=== PATIENT | male | born 1995 | race Hispanic/Latino ===

== ENCOUNTER 2023-01-08 23:57 | Emergency (ER) | payer OTHER ==
[2023-01-09] MEDS ORDERED: CEFAZOLIN SODIUM 1 GM/VIAL ONE (00:45)
[2023-01-09 00:46] LABS: Hematocrit 50.1 % (39.6-49.0); Lymphocytes % 15.9 % (15.3-44.8); MCV 83.9 fL (80-100); MPV 7.9 fL (7.6-11.3); RBC Red Blood Cell Count 5.98 M/uL (4.33-5.43)
[2023-01-09] MEDS ORDERED: NA CHLORIDE 0.9% 100 ML ONE (00:46)
[2023-01-09 00:49] LABS: Protime INR 1.37
[2023-01-09 00:54] LABS: SARS-CoV-2 Antigen Rapid Res Positive (Negative)
[2023-01-09 00:58] LABS: Potassium 4.3 mmol/L (3.5-5.1)
[2023-01-09] MEDS ORDERED: TETANUS & DIPHTHERIA TOX,ADULT 0.5 ML VIAL ONE (01:44)
--- NOTE | 2023-01-09 02:05 | EDPHYS ---
Physician Documentation [facility] Name: Curtis Chan Age: 27 yrs Sex: Male : 1995 Arrival Date: 01/08/2023 Time: 23:58 Bed 3 Private MD: ED Physician Otilio Vieira HPI: 01/09 01:52 This 27 yrs old Male presents to ER via EMS with complaints of Suicidal Ideation. rn 01:52 This 27 yrs old Male presents to ER via EMS with complaints of Suicidal attempt. rn 01:53 The patient or guardian reports a laceration, 10 cm(s). The complaints affect the left rn wrist diffusely, right wrist diffusely. Onset: The symptoms/episode began/occurred just prior to arrival. Modifying factors: The symptoms are alleviated by nothing, the symptoms are aggravated by nothing. The patient has not experienced similar symptoms in the past. The patient has not recently seen a physician. Pt is inmate, attempted suicide by both strangulation with charging cord, and then used straight razor to cut both forearms. Reports weakness in left hand when making a fist. No LOC. Unknown tetanus status. No sob or trouble swallowing.. Historical: - Allergies: 00:02 No Known Allergies; mb9 - Home Meds: 00:02 Propranolol Oral [Active]; mb9 - PMHx: 00:02 Hypertensive disorder; Hyperthyroidism; mb9 - PSHx: 00:02 None; mb9 - Immunization history:: Adult Immunizations not up to date. - Social history:: Smoking status: Patient denies any tobacco usage or history of. - Family history:: not pertinent. - Hospitalizations: : No recent hospitalization is reported. ROS: 01:53 Constitutional: Negative for fever, chills, and weight loss, Neck: + mera on neck from rn cord, negative for swelling or trouble swallowing. Cardiovascular: Negative for chest pain, palpitations, and edema, Respiratory: Negative for shortness of breath, cough, wheezing, and pleuritic chest pain, Abdomen/GI: Negative for abdominal pain, nausea, vomiting, diarrhea, and constipation, MS/Extremity: + lacerations to both forearms Skin: + lacerations to forearms. Neuro: Negative for headache, seizure Exam: 01:53 Constitutional: This is a well developed, well nourished patient who is awake, alert, rn and in no acute distress. Head/Face: Normocephalic, atraumatic. Neck: + ligature eric along neck, no crepitus Cardiovascular: Tachycardic, regular. Respiratory: No increased work of breathing, no retractions or nasal flaring. Abdomen/GI: Soft, non-tender Skin: Warm, dry, no active bleeding MS/ Extremity: Pulses equal, no cyanosis. + bilateral deep lacerations, left forearm deeper than right with fascia violated and tendons exposed. Pt unable to completely make a fist using left hand. Right hand FROM. NO arterial bleeding noted. Neuro: Awake and alert, GCS 15 Vital Signs: 01/08 23:58 BP 152 / 89; Pulse 115; Resp 16; Temp 99.4; Pulse Ox 100% on R/A; Weight 63.05 kg; mb9 Height 5 ft. 7 in. (170.18 cm); Pain 0/10; 01/09 01:30 BP 144 / 88; Pulse 114; Resp 16; Pulse Ox 98% on R/A; jb4 02:52 BP 117 / 85; Pulse 112; Resp 15; Pulse Ox 96% ; vc1 04:00 BP 124 / 82; Pulse 110; Resp 19; Pulse Ox 98% on R/A; jb4 05:10 BP 111 / 95; Pulse 106; Resp 16; Pulse Ox 95% on R/A; jb4 06:00 BP 133 / 88; Pulse 91; Resp 18; Pulse Ox 96% on R/A; jb4 07:00 BP 119 / 78; Pulse 99; Resp 16; Pulse Ox 96% on R/A; jb4 01/08 23:58 Body Mass Index 21.77 (63.05 kg, 170.18 cm) mb9 MDM: 01/08 23:59 Patient medically screened. rn 01/09 01:53 Differential diagnosis: tendon laceration, muscle laceration, deep forearm lacerations. rn Data reviewed: vital signs, nurses notes, radiologic studies, plain films, and as a result, I will admit patient. Independent interpretation of the following test(s) in the Emergency Department X-Ray: My interpretation is Xrays forearms neg for foreign bodies, + air in tissues.. Counseling: I had a detailed discussion with the patient and/or guardian regarding: the historical points, exam findings, and any diagnostic results supporting the discharge/admit diagnosis, radiology results, the need to transfer to another facility. Response to treatment: the patient's symptoms have mildly improved after treatment, and as a result, I will admit patient. ED course: Pt with deep lacerations of forearms, tried to transfer to [facility] given is inmate, but [facility] without beds, cleared to transfer to any facility, accepted for transfer at [facility] for hand evaluation given possible tendon laceration and weakness of left hand. . 01:53 ED course: Wounds irrigated, abx given, tetanus updated. . rn 02:38 ED course: Wounds irrigated by cutter grind tool technician with pressurized normal saline. rn 01/09 00:11 Order name: CBC with Diff; Complete Time: 00:56 rn 01/09 00:11 Order name: Basic Metabolic Panel; Complete Time: 01:07 rn 01/09 00:11 Order name: Protime (+inr); Complete Time: 00:56 rn 01/09 00:11 Order name: Ptt, Activated; Complete Time: 00:56 rn 01/09 00:11 Order name: XRAY Forearm LEFT rn 01/09 00:14 Order name: SARS RAPID; Complete Time: 00:56 kl 01/09 00:11 Order name: IV Start; Complete Time: 00:37 rn 01/09 00:11 Order name: XRAY Forearm RIGHT rn 01/09 00:11 Order name: CT Neck Angio rn 01/09 00:11 Order name: Suicide Precautions; Complete Time: 00:28 rn 01/09 00:11 Order name: Wound Care; Complete Time: 00:37 rn 01/09 00:11 Order name: Wound dressing; Complete Time: 00:37 rn 01/09 02:38 Order name: NPO; Complete Time: 02:42 rn Administered Medications: 00:50 Drug: Ancef (cefazolin) 2 grams Route: IVPB; Infused Over: 30 mins; Site: right upper jb4 arm; 01:20 Follow up: Response: No adverse reaction; Marked relief of symptoms; IV Status: jb4 Completed infusion; IV Intake: 100ml 01:47 Drug: Tetanus Toxoid,Adsorbed 0.5 ml {Trust Clerk: [employer]. Exp: 04/04/2024. Lot jb4 #: [id number]. } Route: IM; Site: right deltoid; 02:43 Follow up: Response: No adverse reaction jb4 02:43 Drug: morphine 4 mg Route: IVP; Infused Over: 4 mins; Site: right upper arm; jb4 02:43 Drug: Zofran (Ondansetron) 4 mg Route: IVP; Site: right upper arm; jb4 03:29 Drug: D5-NS 1000 ml Route: IV; Rate: 125 ml/hr; Site: right upper arm; jb4 Disposition Summary: 01/09/23 02:04 Transfer Ordered Transfer Location: [facility] rn Reason: Higher level of care rn Condition: Stable rn Problem: new rn Symptoms: have improved rn Accepting Physician: Dr. Bacon(01/09/23 07:16) hb Diagnosis - Laceration without foreign body of left forearm - With tendon injury rn - Laceration without foreign body of right forearm rn - Suicidal ideations rn Forms: - Medication Reconciliation Form rn - SBAR form rn Signatures: Dispatcher [employer] EDMS Otilio Vieira MD MD rn Baxter, Heather RN Fortunato Juarez RN RN jb4 Brinda Garcia, RN RN mb9 Corrections: (The following items were deleted from the chart) 01:56 01:53 Pt is inmate, attempted suicide by both strangulation with charging cord, and rn then used straight razor to cut both forearms. Reports weakness in left hand when making a fist. No LOC. Unknown tetanus status. . rn 01:57 01:53 Constitutional: Negative for fever, chills, and weight loss, Neck: + mera on rn neck from cord, negative for swelling or trouble swallowing. Cardiovascular: Negative for chest pain, palpitations, and edema, Respiratory: Negative for shortness of breath, cough, wheezing, and pleuritic chest pain, Abdomen/GI: Negative for abdominal pain, nausea, vomiting, diarrhea, and constipation, MS/Extremity: + lacerations to both forearms Skin: + lacerations to forearms. Neuro: Negative for headache, weakness, numbness, tingling, and seizure, rn 07:16 02:04 Dr. Bacon rn hb
--- NOTE | 2023-01-09 02:05 | ER ---
Nurse's Notes [facility] Name: Curtis Chan Age: 27 yrs Sex: Male : 1995 Arrival Date: 01/08/2023 Time: 23:58 Bed 3 Private MD: Diagnosis: Laceration without foreign body of left forearm-With tendon injury;Laceration without foreign body of right forearm;Suicidal ideations Presentation: 01/08 23:58 Chief complaint: EMS states: "pt cut each wrist vertically about 7.5 cm long with a mb9 razor. No active bleeding when we arrived on scene. He also wrapped a phone cord around his neck and squeezed tight until he passed out. Pt states he blacked out and felt like he was almost .". Coronavirus screen: Vaccine status: Patient reports being unvaccinated. Ebola Screen: No symptoms or risks identified at this time. Initial Sepsis Screen: Does the patient meet any 2 criteria? No. Patient's initial sepsis screen is negative. Does the patient have a suspected source of infection? No. Patient's initial sepsis screen is negative. Risk Assessment: Do you want to hurt yourself or someone else? Patient reports desire/thoughts of hurting themselves or someone else. Provider notified. Onset of symptoms was January 09, 2023. 23:58 Method Of Arrival: EMS: [facility] mb9 23:58 Acuity: KB 2 mb9 Historical: - Allergies: 01/09 00:02 No Known Allergies; mb9 - Home Meds: 00:02 Propranolol Oral [Active]; mb9 - PMHx: 00:02 Hypertensive disorder; Hyperthyroidism; mb9 - PSHx: 00:02 None; mb9 - Immunization history:: Adult Immunizations not up to date. - Social history:: Smoking status: Patient denies any tobacco usage or history of. - Family history:: not pertinent. - Hospitalizations: : No recent hospitalization is reported. Screenin:03 [facility] ED Fall Risk Assessment (Adult) History of falling in the last 3 months, mb9 including since admission No falls in past 3 months (0 pts) Confusion or Disorientation No (0 pts) Intoxicated or Sedated No (0 pts) Impaired Gait No (0 pts) Mobility Assist Device Used No (0 pt) Altered Elimination No (0 pt) Score/Fall Risk Level 0 - 2 = Low Risk. Abuse screen: Denies threats or abuse. Nutritional screening: No deficits noted. Tuberculosis screening: No symptoms or risk factors identified. Assessment: 00:00 General: Appears in no apparent distress. uncomfortable, Behavior is calm, cooperative, jb4 appropriate for age. Pain: Denies pain. Neuro: Level of Consciousness is awake, alert. Cardiovascular: Patient's skin is warm and dry. Respiratory: Airway is patent Respiratory effort is even, unlabored, Respiratory pattern is regular, symmetrical. GI: No signs and/or symptoms were reported involving the gastrointestinal system. : No signs and/or symptoms were reported regarding the genitourinary system. EENT: No signs and/or symptoms were reported regarding the EENT system. Derm: Skin is pink, warm \\T\\ dry. Bruising that is bright red, dark purple, on neck. Musculoskeletal: Circulation, motion, and sensation intact. Range of motion: intact in all extremities. Injury Description: Laceration sustained to palmar aspect of right wrist and palmar aspect of left wrist is not bleeding, no active bleeding noted at this time. bruising around the neck noted. Pt reports attempting to hang himself. 00:54 Reassessment: Patient appears in no apparent distress at this time. Patient and/or jb4 family updated on plan of care and expected duration. Pain level reassessed. Patient is alert, oriented x 3, equal unlabored respirations, skin warm/dry/pink. 02:00 Reassessment: Patient appears in no apparent distress at this time. Patient and/or jb4 family updated on plan of care and expected duration. Pain level reassessed. Patient is alert, oriented x 3, equal unlabored respirations, skin warm/dry/pink. 02:53 Reassessment: Patient appears in no apparent distress at this time. Patient and/or jb4 family updated on plan of care and expected duration. Pain level reassessed. Patient is alert, oriented x 3, equal unlabored respirations, skin warm/dry/pink. 03:54 Reassessment: Patient appears in no apparent distress at this time. Patient and/or jb4 family updated on plan of care and expected duration. Pain level reassessed. Patient is alert, oriented x 3, equal unlabored respirations, skin warm/dry/pink. Pt reports numbness to his right thumb, officers loosened cuffs. Numbness went away. Continues to report pain, provider notified. No new orders at this time. 05:10 Reassessment: Patient appears in no apparent distress at this time. Patient and/or jb4 family updated on plan of care and expected duration. Pain level reassessed. Patient is alert, oriented x 3, equal unlabored respirations, skin warm/dry/pink. 06:00 Reassessment: Pt resting in bed with eyes closed, respirations are even and unlabored jb4 with no s/s of pain or distress noted. 07:00 Reassessment: Patient appears in no apparent distress at this time. No changes from jb4 previously documented assessment. Patient and/or family updated on plan of care and expected duration. Pain level reassessed. Vital Signs: 01/08 23:58 BP 152 / 89; Pulse 115; Resp 16; Temp 99.4; Pulse Ox 100% on R/A; Weight 63.05 kg; mb9 Height 5 ft. 7 in. (170.18 cm); Pain 0/10; 01/09 01:30 BP 144 / 88; Pulse 114; Resp 16; Pulse Ox 98% on R/A; jb4 02:52 BP 117 / 85; Pulse 112; Resp 15; Pulse Ox 96% ; vc1 04:00 BP 124 / 82; Pulse 110; Resp 19; Pulse Ox 98% on R/A; jb4 05:10 BP 111 / 95; Pulse 106; Resp 16; Pulse Ox 95% on R/A; jb4 06:00 BP 133 / 88; Pulse 91; Resp 18; Pulse Ox 96% on R/A; jb4 07:00 BP 119 / 78; Pulse 99; Resp 16; Pulse Ox 96% on R/A; jb4 01/08 23:58 Body Mass Index 21.77 (63.05 kg, 170.18 cm) mb9 ED Course: 01/08 23:58 Patient arrived in ED. mb9 23:59 Otilio Vieira MD is Attending Physician. rn 01/09 00:01 Triage completed. mb9 00:01 Arm band placed on. mb9 00:03 No provider procedures requiring assistance completed. Maintain EMS IV. Dressing mb9 intact. Good blood return noted. Site clean \\T\\ dry. Gauge \\T\\ site: 18 gauge to left AC. 00:04 Bed in low position. Client placed on continuous cardiac and pulse oximetry monitoring. mb9 NIBP monitoring applied. oil refiner on. 00:35 XRAY Forearm LEFT In Process Unspecified. EDMS 00:35 XRAY Forearm RIGHT In Process Unspecified. EDMS 00:37 CBC with Diff Sent. jb4 00:37 Basic Metabolic Panel Sent. jb4 00:38 Ptt, Activated Sent. jb4 00:38 SARS RAPID Sent. jb4 00:50 Initiated transfer to [facility] per their protocol \\T\\ 0020, called back and stated no beds wm available and was given instructions to send wherever, then to call back with whoever accepts and they would arrange transport, per Maria Luisa Tran. 00:50 Initiated transfer to [facility], spoke with Zenaida. wm 00:51 Fortunato Marrufo, RN is Primary Nurse. jb4 01:34 Accepted for transfer to [facility] ER per Zenaida Rosales. wm 01:38 CT Neck Angio In Process Unspecified. EDMS 02:31 Wound care: to laceration located on right arm and left arm and palmar aspect of right mw1 wrist and palmar aspect of left wrist was irrigated with normal saline, dressed with 4X4s, Kerlix, Patient tolerated well. 07:10 Patient transferred, IV remains in place. hb Administered Medications: 00:50 Drug: Ancef (cefazolin) 2 grams Route: IVPB; Infused Over: 30 mins; Site: right upper jb4 arm; 01:20 Follow up: Response: No adverse reaction; Marked relief of symptoms; IV Status: jb4 Completed infusion; IV Intake: 100ml 01:47 Drug: Tetanus Toxoid,Adsorbed 0.5 ml {Food Safety Scientist: [employer]. Exp: 04/04/2024. Lot jb4 #: [id number]. } Route: IM; Site: right deltoid; 02:43 Follow up: Response: No adverse reaction jb4 02:43 Drug: morphine 4 mg Route: IVP; Infused Over: 4 mins; Site: right upper arm; jb4 02:43 Drug: Zofran (Ondansetron) 4 mg Route: IVP; Site: right upper arm; jb4 03:29 Drug: D5-NS 1000 ml Route: IV; Rate: 125 ml/hr; Site: right upper arm; jb4 Medication: 00:03 VIS not applicable for this client. mb9 Intake: 01:20 IV: 100ml; Total: 100ml. jb4 Outcome: 02:04 ER care complete, transfer ordered by . rn 07:10 Transferred by ground EMS Note: in police custody hb 07:10 Condition: stable 07:10 Instructed on the need for transfer, Demonstrated understanding of instructions. 07:16 Patient left the ED. Signatures: Dispatcher [employer] EDMS Otilio Vieira MD MD rn Baxter, Heather, RN RN Fortunato Marrufo RN RN jb4 [facility] Chanell Zafar Vanessa, RN RN vc1 Brinda Garcia RN RN mb9
[2023-01-09] MEDS ORDERED: MORPHINE 4 MG/ML SYR ONE (02:43)
[2023-01-09] MEDS ORDERED: ONDANSETRON 4 MG/2 ML VIAL ONE (02:43)
[2023-01-09] MEDS ORDERED: D5 0.9 NS 1,000 ML IV ONE (03:27)
[2023-01-09 07:21] VITALS: TEMP 99.4
[2023-01-09 07:27] VITALS: O2SAT 96
[2023-01-09 07:28] VITALS: BP 119/78
--- NOTE | 2023-01-09 12:30 | RAD REPORT ---
EXAM DESCRIPTION: CT - Neck Angio - 01/09/2023 7:10 am CLINICAL HISTORY: Hanging attempt COMPARISON: None Available. TECHNIQUE: Multiple helical axial tomographic images were obtained of the neck following administrat ion of intravenous contrast per angiographic protocol. MIP reformatted images were obtained. This exa m was performed according to our departmental dose-optimization program, which includes automated exp osure control, adjustment of the mA and/or kV according to patient size and/or use of iterative recon struction technique. FINDINGS: Carotid and vertebral arterial vasculature of the neck appears patent without significant stenosis or occlusion. Thyroid gland appears enlarged. Salivary glands appear unremarkable. No evidence of adenopathy. Retro pharyngeal space appears normal. Epiglottis appears normal. Larynx and vocal folds appear unremarkabl e. Visualized lungs are clear. Small sphenoid sinus mucus retention cyst noted. Osseous structures are unremarkable. No obvious acute fracture. IMPRESSION: 1. No evidence of significant arterial stenosis or occlusion within the neck. 2. Enlarged thyroid gland, consider correlation with laboratory values. Electronically signed by: Donald Rivero MD 01/09/2023 3:22 AM DOCKING SAW OPERATOR Due to temporary technical issues with the PACS/Fluency reporting system, reports are being signed by the in house radiologists without review as a courtesy to insure prompt reporting. The interpreting radiologist is fully responsible for the content of the report.
--- NOTE | 2023-01-09 12:32 | RAD REPORT ---
EXAM DESCRIPTION: RAD - Forearm Right - 01/09/2023 12:33 am CLINICAL HISTORY: The patient is 27 years old and is Male; laceration, eval for foreign body TECHNIQUE: Frontal and lateral views of the right forearm. COMPARISON: No relevant prior studies available. FINDINGS: LIMITATIONS: Examination is limited secondary to artifact from handcuffs. BONES/JOINTS: Unremarkable. No acute fracture. No dislocation. SOFT TISSUES: Subcutaneous air is present within the soft tissues of the right forearm. IMPRESSION: Subcutaneous air is present within the soft tissues of the right forearm. No underlyin g acute bony abnormality. Electronically signed by: Heather Baker MD 01/09/2023 12:59 AM ROBOTIC WELDING OPERATOR Due to temporary technical issues with the PACS/Fluency reporting system, reports are being signed by the in house radiologists without review as a courtesy to insure prompt reporting. The interpreting radiologist is fully responsible for the content of the report.
--- NOTE | 2023-01-09 12:34 | RAD REPORT ---
EXAM DESCRIPTION: RAD - Forearm Left - 01/09/2023 12:33 am CLINICAL HISTORY: The patient is 27 years old and is Male; laceration, eval for foreign body TECHNIQUE: Frontal and lateral views of the left forearm. COMPARISON: No relevant prior studies available. FINDINGS: LIMITATIONS: Examination is limited secondary to artifact from handcuffs. BONES/JOINTS: Unremarkable. No acute fracture. No dislocation. SOFT TISSUES: Subcutaneous air is present within the soft tissues of the left forearm. IMPRESSION: Subcutaneous air is present within the soft tissues of the left forearm. No underlying acute bony abnormality. Electronically signed by: Heather Baker MD 01/09/2023 12:58 AM CATALOG LIBRARIAN Due to temporary technical issues with the PACS/Fluency reporting system, reports are being signed by the in house radiologists without review as a courtesy to insure prompt reporting. The interpreting radiologist is fully responsible for the content of the report.
== END 2023-01-09 07:16 | disposition short-term general hospital (02) ==
LOC: ER 23:57
DX: S51.812A Laceration without foreign body of left forearm, initial encounter (principal); S51.811A Laceration without foreign body of right forearm, initial encounter; U07.1 COVID-19; X78.8XXA Intentional self-harm by other sharp object, initial encounter; I10 Essential (primary) hypertension; Z23 Encounter for immunization
CPT/HCPCS: 96365; 85025; 80048; 36415; 85610; 85730; 70498; 73090 ×2; 90471; 90714; 96375; 99285; 87811; Q9967; J0690; J2405; J7042